=== PATIENT | male | born 1990 | race Hispanic/Latino ===

== ENCOUNTER 2021-04-14 08:26 | Emergency (ER) | payer OTHER ==
[2021-04-14] MEDS ORDERED: Sodium Chloride 0.9% 10 ML Syringe FLUSH PRN (11:14)
[2021-04-14] MEDS ORDERED: Famotidine 20 MG/2 ML SDV IVPUSH PRN (11:15)
[2021-04-14] MEDS ORDERED: methylPREDNISolone Sodium Succinate 125 MG/2 ML SDV IVPUSH PRN (11:15)
[2021-04-14] MEDS ORDERED: EPINEPHrine 1 MG/ML SDV IM PRN (11:15)
[2021-04-14] MEDS ORDERED: Sodium Chloride 0.9% 10 ML Syringe FLUSH SCH (11:15)
[2021-04-14] MEDS ORDERED: diphenhydrAMINE 50 MG/ML SDV IVPUSH PRN (11:15)
[2021-04-14] MEDS ORDERED: Doxycycline 100 MG Cap PO ONE (12:12)
--- NOTE | 2021-04-14 12:13 | EDM.PDOC ---
ED HPI GENERAL MEDICAL PROBLEM - General Chief Complaint: Skin Complaint Stated Complaint: JIGNA AMB/LAW Time Seen by Provider: 04/14/21 11:03 Source of Information: Reports: Patient History Limitations: Reports: No Limitations - History of Present Illness INITIAL COMMENTS - FREE TEXT/NARRATIVE: 31-year-old male presents the emergency department today with complaints of a ra sh on his back. Patient states he has been incarcerated in custodial for the past 5 months. He states that he has developed and noted a progressively worsening rash to his back. He reports that it is weeping at nighttime. He did test positive for Covid yesterday. He states over the past week he has developed decreased appetite, body aches, chills, nausea. He states that prior to being incarcerated he did smoke marijuana daily. He denies any significant past medical history. He does not take any prescription medications. Back Pain Score (Numeric/FACES): 7 - Related Data Allergies Allergy/AdvReac Type Severity Reaction Status Date / Time No Known Allergies Allergy Verified 04/14/21 08:31 Home Meds: Home Meds Ketoconazole [Nizoral A-D] 125 ml TP DAILY #2 shampoo 04/14/21 [Rx] Past Medical History Musculoskeletal History: Reports: Fracture, Other (See Below) Other Musculoskeletal History: crush injury to R) thumb. - Infectious Disease History Infectious Disease History: Reports: Chicken Pox, Novel Coronavirus - Past Surgical History Musculoskeletal Surgical History: Reports: Other (See Below) Other Musculoskeletal Surgeries/Procedures:: surgery to R) thumb after crush injury. Social & Family History - Tobacco Use Tobacco Use Status *Q: Never Tobacco User Second Hand Smoke Exposure: No - Caffeine Use Caffeine Use: Reports: Coffee - Recreational Drug Use Recreational Drug Use: Yes Recreational Drug Type: Reports: Marijuana/Hashish, Methamphetamine ED ROS GENERAL - Review of Systems Review Of Systems: Comprehensive ROS is negative, except as noted in HPI. ED EXAM, SKIN/RASH Exam: See Below Exam Limited By: No Limitations General Appearance: Alert, WD/WN, No Apparent Distress Ears: Normal External Exam, Hearing Grossly Normal Nose: Normal Inspection Throat/Mouth: Normal Inspection, Normal Lips, Normal Voice, No Airway Compromise Head: Atraumatic Neck: Normal Inspection, Supple Respiratory/Chest: No Respiratory Distress, Lungs Clear, Normal Breath Sounds, No Accessory Muscle Use, Chest Non-Tender Cardiovascular: Normal Peripheral Pulses, Regular Rate, Rhythm, No Edema, No Murmur Course - Vital Signs Text/Narrative:: As stated above, patient presents with a progressively worsening rash noted to his back. Upon exam, the patient does have a scattered papular/vesicular rash noted to his bilateral scapular area. As well as bilateral thoracic area. Patient states that the rash seems to be worsening over the past 3 weeks. I do not appreciate any drainage noted from the area. Patient does not have any rash noted between his fingers toes and his groin and his armpits or anywhere else. Rash is fairly localized to the scapular and thoracic area bilaterally. Remainder of physical exam is otherwise unremarkable. Will obtain lab studies to include a CBC, CMP, C-reactive protein, magnesium and D-dimer levels. Will obtain portable chest x-ray as the patient has Covid. We will start the patient on doxycycline 100 mg twice daily for 10 days time however patient likely will need to follow-up with family practice and have the area biopsied if it does not resolve from the doxycycline. Last Recorded V/S: Last Vital Signs Temp 97.9 F 04/14/21 13:05 Pulse 76 04/14/21 13:05 Resp 18 04/14/21 13:05 BP 116/67 04/14/21 13:05 Pulse Ox 99 04/14/21 13:05 - Orders/Labs/Meds Orders: Active Orders 24 hr Category Date Time Status Vital Signs [RC] Q15M Care 04/14/21 11:15 Active Chest 1V Frontal [CR] Stat Exams 04/14/21 11:14 Taken EPINEPHrine [Adrenalin] Med 04/14/21 11:15 Active 0.3 mg IM ASDIRECTED PRN Famotidine [Pepcid] Med 04/14/21 11:15 Active 20 mg IVPUSH ASDIRECTED PRN Sodium Chloride 0.9% [Saline Flush] Med 04/14/21 11:14 Active 10 ml FLUSH ASDIRECTED PRN Sodium Chloride 0.9% [Saline Flush] Med 04/14/21 11:15 Active 30 ml FLUSH ASDIRECTED diphenhydrAMINE [Benadryl] Med 04/14/21 11:15 Active 50 mg IVPUSH ASDIRECTED PRN methylPREDNISolone Sod Succ [Solu-MEDROL] Med 04/14/21 11:15 Active 125 mg IVPUSH ASDIRECTED PRN Saline Lock Insert [OM.PC] Stat Oth 04/14/21 11:14 Ordered Medication Orders Diphenhydramine HCl (Diphenhydramine 50 Mg/Ml Sdv) 50 mg IVPUSH ASDIRECTED PRN PRN Reason: hypersensitivity reaction Epinephrine HCl (Epinephrine 1 Mg/Ml Sdv) 0.3 mg IM ASDIRECTED PRN PRN Reason: hypersensitivity reaction Famotidine (Famotidine 20 Mg/2 Ml Sdv) 20 mg IVPUSH ASDIRECTED PRN PRN Reason: hypersensitivity reaction Methylprednisolone Sodium Succinate (Methylprednisolone Sodium Succinate 125 Mg/2 Ml Sdv) 125 mg IVPUSH ASDIRECTED PRN PRN Reason: hypersensitivity reaction Sodium Chloride (Sodium Chloride 0.9% 10 Ml Syringe) 10 ml FLUSH ASDIRECTED PRN PRN Reason: Keep Vein Open Sodium Chloride (Sodium Chloride 0.9% 10 Ml Syringe) 30 ml FLUSH ASDIRECTED KARMA Labs: Laboratory Tests 04/14/21 04/14/21 04/14/21 Range/Units 11:30 11:30 11:30 WBC 4.39 (4.23-9.07) K/mm3 RBC 4.91 (4.63-6.08) M/mm3 Hgb 13.9 (13.7-17.5) gm/dl Hct 42.5 (40.1-51.0) % MCV 86.6 (79.0-92.2) fl MCH 28.3 (25.7-32.2) pg MCHC 32.7 (32.2-35.5) g/dl RDW Std Deviation 39.0 (35.1-43.9) fL Plt Count 130 L (163-337) K/mm3 MPV 13.3 H (9.4-12.3) fl Neut % (Auto) 56.5 (34.0-67.9) % Lymph % (Auto) 22.8 (21.8-53.1) % [place] % (Auto) 19.8 H (5.3-12.2) % Eos % (Auto) 0.2 L (0.8-7.0) Baso % (Auto) 0.7 (0.1-1.2) % Neut # (Auto) 2.48 (1.78-5.38) K/mm3 Lymph # (Auto) 1.00 L (1.32-3.57) K/mm3 [place] # (Auto) 0.87 H (0.30-0.82) K/mm3 Eos # (Auto) 0.01 L (0.04-0.54) K/mm3 Baso # (Auto) 0.03 (0.01-0.08) K/mm3 D-Dimer, Quantitative 0.50 (0.19-0.50) mg/L Sodium 144 (136-145) mEq/L Potassium 4.1 (3.5-5.1) mEq/L Chloride 104 (98-107) mEq/L Carbon Dioxide 30 (21-32) mEq/L Anion Gap 14.1 (5-15) BUN 18 (7-18) mg/dL Creatinine 1.1 (0.7-1.3) mg/dL Est Cr Clr Drug Dosing 89.42 mL/min Estimated GFR (MDRD) > 60 (>60) mL/min BUN/Creatinine Ratio 16.4 (14-18) Glucose 93 (70-99) mg/dL Calcium 8.8 (8.5-10.1) mg/dL Magnesium 1.9 (1.8-2.4) mg/dL Total Bilirubin 0.2 (0.2-1.0) mg/dL AST 15 (15-37) U/L ALT 27 (16-63) U/L Alkaline Phosphatase 74 (46-116) U/L C-Reactive Protein 1.5 H* (<1.0) mg/dL Total Protein 7.3 (6.4-8.2) g/dl Albumin 4.1 (3.4-5.0) g/dl Globulin 3.2 gm/dL Albumin/Globulin Ratio 1.3 (1-2) Meds: Medications Generic Name Dose Route Start Last Admin Trade Name Freq PRN Reason Stop Dose Admin Diphenhydramine HCl 50 mg 04/14/21 11:15 Diphenhydramine 50 Mg/Ml Sdv IVPUSH ASDIRECTED PRN hypersensitivity reaction Epinephrine HCl 0.3 mg 04/14/21 11:15 Epinephrine 1 Mg/Ml Sdv IM ASDIRECTED PRN hypersensitivity reaction Famotidine 20 mg 04/14/21 11:15 Famotidine 20 Mg/2 Ml Sdv IVPUSH ASDIRECTED PRN hypersensitivity reaction Methylprednisolone Sodium Succinate 125 mg 04/14/21 11:15 Methylprednisolone Sodium Succinate 125 Mg/2 Ml Sdv IVPUSH ASDIRECTED PRN hypersensitivity reaction Sodium Chloride 10 ml 04/14/21 11:14 Sodium Chloride 0.9% 10 Ml Syringe FLUSH ASDIRECTED PRN Keep Vein Open Sodium Chloride 30 ml 04/14/21 11:15 Sodium Chloride 0.9% 10 Ml Syringe FLUSH ASDIRECTED KARMA Discontinued Medications Generic Name Dose Route Start Last Admin Trade Name Nelson PRN Reason Stop Dose Admin Doxycycline Hyclate 100 mg 04/14/21 12:12 04/14/21 13:03 Doxycycline 100 Mg Cap PO 04/14/21 12:13 100 mg ONETIME ONE Administration Bamlanivimab 700 mg/ 310 mls @ 310 mls/hr 04/14/21 11:45 04/14/21 11:42 Etesevimab 1,400 mg/ Sodium IV 04/14/21 12:44 310 mls/hr Chloride ONETIME ONE Administration - Re-Assessments/Exams Free Text/Narrative Re-Assessment/Exam: 04/14/21 12:00 Nothing acute is appreciated on portable view of the chest. I spoke with the patient to provide information about Regeneron for himself. I offered her the fax sheet for patients and caregivers for Regeneron to read and review. I stated the therapy has been approved by an emergency use authorization process and has not fully been FDA reviewed or approved. I shared the potential risks from the therapy including risks/adverse reactions. I discussed there are other potential treatment options that are currently not FDA approved to treat COVID-19. Offered opportunity ask questions and all questions were answered. Patient voiced understanding and agreed to proceed with treatment for himself. 04/14/21 14:00 , general surgeon, here seeing a different patient, however I had her look at the patient's skin. She suspects that rash is due to a fungal infection and recommends he be started on ketoconazole once daily. 04/14/21 14:29 Patient did receive antibody treatment and tolerated it well. He was observed for 1 hour after treatment. He will be discharged back to the [facility] with a prescription for ketoconazole. Departure - Departure Time of Disposition: 14:29 Disposition: Home, Self-Care 01 Condition: Good Clinical Impression: Fungal infection, COVID-19 - Discharge Information Prescriptions: Ketoconazole [Nizoral A-D] 125 ml TP DAILY #2 shampoo Instructions: COVID-19: Quarantine vs. Isolation - [facility] (03/30/2020), 10 Things You Can Do to Manage Your COVID-19 Symptoms at Home - [facility] (10/27/2020) Referrals: PCP,None [Primary Care Provider] - Forms: ED Department Discharge Additional Instructions: You were seen in the emergency department today with complaints of a rash noted to your back as well as Covid symptoms. Lab studies were completed which were essentially unremarkable. Chest x-ray was completed which was also unremarkable. You did receive antibiotic treatment while in the ER to treat your Covid. This will decrease the severity and length of time you have symptoms of Covid. I did have one of our general surgeons take a look at your back and she believes that you have a fungal infection. Treatment for this is washing once daily with fungal shampoo. Be sure to keep your clothing dry at all times and change her bedding frequently if this is what is causing you to sweat. You will need to continue using the wash even after the rash has resolved. At this time antibiotics are not warranted. Should your condition worsen or change, do not hesitate returning to the ER. Sepsis Event Note (ED) - Evaluation Sepsis Screening Result: No Definite Risk - Focused Exam Vital Signs: Vital Signs Temp Pulse Resp BP Pulse Ox 04/14/21 13:05 97.9 F 76 18 116/67 99 04/14/21 08:26 97.3 F 88 19 141/73 H 94 L - My Orders Last 24 Hours: My Active Orders 04/14/21 11:14 Chest 1V Frontal [CR] Stat Sodium Chloride 0.9% [Saline Flush] 10 ml FLUSH ASDIRECTED PRN Saline Lock Insert [OM.PC] Stat 04/14/21 11:15 Vital Signs [RC] Q15M EPINEPHrine [Adrenalin] 0.3 mg IM ASDIRECTED PRN Famotidine [Pepcid] 20 mg IVPUSH ASDIRECTED PRN Sodium Chloride 0.9% [Saline Flush] 30 ml FLUSH ASDIRECTED diphenhydrAMINE [Benadryl] 50 mg IVPUSH ASDIRECTED PRN methylPREDNISolone Sod Succ [Solu-MEDROL] 125 mg IVPUSH ASDIRECTED PRN - Assessment/Plan Last 24 Hours: My Active Orders 04/14/21 11:14 Chest 1V Frontal [CR] Stat Sodium Chloride 0.9% [Saline Flush] 10 ml FLUSH ASDIRECTED PRN Saline Lock Insert [OM.PC] Stat 04/14/21 11:15 Vital Signs [RC] Q15M EPINEPHrine [Adrenalin] 0.3 mg IM ASDIRECTED PRN Famotidine [Pepcid] 20 mg IVPUSH ASDIRECTED PRN Sodium Chloride 0.9% [Saline Flush] 30 ml FLUSH ASDIRECTED diphenhydrAMINE [Benadryl] 50 mg IVPUSH ASDIRECTED PRN methylPREDNISolone Sod Succ [Solu-MEDROL] 125 mg IVPUSH ASDIRECTED PRN
--- NOTE | 2021-04-16 13:57 | CR ---
EXAM: XR CHEST 1 VIEW LOCATION: [facility] DATE/TIME: 04/14/2021 11:19 AM INDICATION: Covid COMPARISON: None. IMPRESSION: Heart is normal in size. Lungs are clear. SIGNED BY: Calixto Dunn MD 04/16/2021 12:34 PM MOON
== END 2021-04-14 14:43 | disposition home or self-care (01) ==
LOC: JD.ED 08:26
DX: U07.1 COVID-19 (principal); B36.9 Superficial mycosis, unspecified
CPT/HCPCS: 36415; 71045; 80053; 83735; 85025; 85379; 86140; 99283; A9270; J7050; M0245; Q0245

== ENCOUNTER 2021-04-28 13:01 | Emergency (ER) | payer OTHER | END 2021-04-28 14:40 | disposition home or self-care (01) | LOC: JD.ED 13:01 | DX: B36.9 Superficial mycosis, unspecified (principal); Z87.891 Personal history of nicotine dependence | CPT/HCPCS: 36415; 80053; 84484; 85025; 85379; 86140; 93005; 99285-25 ==